=== PATIENT | male | born 1985 | race Caucasian/White ===

== ENCOUNTER 2016-09-29 19:56 | Emergency (ER) | payer BC, OTHER ==
[2016-09-29 21:05] LABS: Bilirubin,Urine NEG (Negative); Blood,Urine SM (Negative); Ketones,Urine NEG (Negative); Leukocyte Esterase,Urine NEG (Negative); Mucus,Urine FEW /HPF; Nitrite,Urine NEG (Negative); Protein,Urine <15 mg/dL mg/dL (Negative); Urobilinogen,Urine < 2.0 mg/dL (<2.0)
[2016-09-29 21:23] LABS: Basophils % (Auto) 0.8 % (0.0-1.8); Eosinophils % (Auto) 1.7 % (0.0-4.3); Hematocrit 50.4 % (35.5-45.6); Hemoglobin 16.8 gm/dl (11.8-15.2); Mean Corpuscular HGB Conc 33 % (32-34); Mean Corpuscular Hemoglobin 30 pg (28-32); Mean Corpuscular Volume 91 fl (84-94); Platelet Count 314 K/mm3 (140-440); Red Blood Count 5.53 M/mm3 (3.65-5.03); Red Cell Distribution Width 13.2 % (13.2-15.2); White Blood Count 9.3 K/mm3 (4.5-11.0)
[2016-09-29 21:32] LABS: BUN/Creatinine Ratio 17.39; Calcium 9.8 mg/dL (8.4-10.2)
[2016-09-29 21:49] LABS: Potassium 4.8 mmol/L (3.6-5.0)
[2016-09-30] MEDS ORDERED: NACL 0.9% 1000 ML 1,000 ML IV ONE (02:30)
--- NOTE | 2016-09-30 03:09 | Emergency Department Report ---
HPI - General Chief Complaint: Hyperglycemia Time Seen by Provider: 09/30/16 02:20 - HPI HPI: Room 5 The patient is a 31-year-old male presenting with a chief complaint of body cramping. The patient states she's had multiple episodes after working outside and son when he feels body cramping dizziness nausea and weakness. Patient states the first episode occurred 2 weeks ago while working out son. The patient states yesterday he had an episode and then again today prompting him to go to an urgent care facility. The patient states he was advised to come to the emergency department from the urgent care facility in order to have labs checked. The patient no longer complains of dizziness and nausea or weakness but states he has mild cramping in his extremities. Not ever having chest pain. Patient currently denies shortness of breath. Location: [see above] Duration: Intermittent over the past 2 weeks Quality: Cramping Severity: Moderate Modifying factors: [see above] Context: [see above] Mode of transportation: Unknown ED Past Medical Hx - Past Medical History Previous Medical History?: Yes Hx Hypertension: Yes Hx Diabetes: Yes - Surgical History Past Surgical History?: No - Family History Family history: no significant - Social History Smoking Status: Current Every Day Smoker (1/2 pack per day) Substance Use Type: None (denies illicit drug use), Alcohol (occasional) - Medications Home Medications: Home Medications Medication Instructions Recorded Confirmed Last Taken Type Amoxicillin/K Clav Tab [Augmentin 1 tab PO BID #12 tablet 06/17/14 Unknown Rx 875MG TAB] HYDROcodone/APAP 5-325 [[place] 1 each PO Q6HR PRN #14 tablet 06/17/14 Unknown Rx 5/325] Insulin Glargine [Lantus VIAL] 18 units SUB-Q QHS 30 Days 06/17/14 Unknown Rx Lisinopril [Zestril TAB] 5 mg PO QDAY #30 tablet 06/17/14 Unknown Rx Metformin HCl [Glucophage] 1,000 mg PO BID #60 tablet 06/17/14 Unknown Rx ED Review of Systems ROS: Stated complaint: DIZZINESS/NAUSEA/BODY CRAMPS Other details as noted in HPI Comment: All other systems reviewed and negative Constitutional: denies: chills, fever Eyes: denies: eye pain, eye discharge, vision change ENT: denies: ear pain, throat pain Respiratory: denies: cough, shortness of breath, wheezing Cardiovascular: denies: chest pain, palpitations Endocrine: no symptoms reported Gastrointestinal: nausea. denies: abdominal pain, vomiting, diarrhea Genitourinary: denies: urgency, dysuria Musculoskeletal: myalgia Skin: denies: rash, lesions Neurological: other (dizziness) Psychiatric: denies: anxiety, depression Hematological/Lymphatic: denies: easy bleeding, easy bruising Physical Exam - Physical Exam Vital Signs: Vital Signs 09/29/16 09/30/16 20:31 00:43 Temperature 98 F 97.5 F L Pulse Rate 98 H 95 H Respiratory 16 18 Rate Blood Pressure 135/89 137/79 O2 Sat by Pulse 99 97 Oximetry Physical Exam: GENERAL: The patient is well-developed well-nourished male lying on stretcher not appearing to be in acute distress. [] HEENT: Normocephalic. Atraumatic. Extraocular motions are intact. Patient has moist mucous membranes. NECK: Supple. Trachea midline CHEST/LUNGS: Clear to auscultation. There is no respiratory distress noted. HEART/CARDIOVASCULAR: Regular. There is no tachycardia. There is no gallop rub or murmur. ABDOMEN: Abdomen is soft, nontender. Patient has normal bowel sounds. There is no abdominal distention. SKIN: There is no rash. There is no edema. There is no diaphoresis. NEURO: The patient is awake, alert, and oriented. The patient is cooperative. The patient has no focal neurologic deficits. The patient has normal speech. Cranial nerves II through XII grossly intact, no drift MUSCULOSKELETAL: There is no evidence of acute injury. ED Course Vital Signs 09/29/16 09/30/16 20:31 00:43 Temperature 98 F 97.5 F L Pulse Rate 98 H 95 H Respiratory 16 18 Rate Blood Pressure 135/89 137/79 O2 Sat by Pulse 99 97 Oximetry ED Medical Decision Making - Lab Data Result diagrams: 09/29/16 20:59 09/29/16 20:59 Laboratory Tests 09/29/16 09/29/16 09/29/16 20:26 20:31 20:59 WBC 9.3 RBC 5.53 H Hgb 16.8 H Hct 50.4 H MCV 91 MCH 30 MCHC 33 RDW 13.2 Plt Count 314 Lymph % (Auto) 27.0 Grant % (Auto) 12.0 H Eos % (Auto) 1.7 Baso % (Auto) 0.8 Lymph # 2.5 Grant # 1.1 H Eos # 0.2 Baso # 0.1 Seg Neutrophils % 58.5 Seg Neutrophils # 5.4 VBG pH Sodium Potassium Chloride Carbon Dioxide Anion Gap BUN Creatinine Estimated GFR BUN/Creatinine Ratio Glucose POC Glucose 336 H Calcium Total Creatine Kinase Urine Color Yellow Urine Turbidity Clear Urine pH 5.0 Ur Specific [place] 1.011 Urine Protein <15 mg/dl Urine Glucose (UA) >=500 Urine Ketones Neg Urine Blood Sm Urine Nitrite Neg Urine Bilirubin Neg Urine Urobilinogen < 2.0 Ur Leukocyte Esterase Neg Urine WBC (Auto) 1.0 Urine RBC (Auto) 2.0 Urine Mucus Few 09/29/16 09/29/16 09/29/16 20:59 20:59 20:59 WBC RBC Hgb Hct MCV MCH MCHC RDW Plt Count Lymph % (Auto) [place] % (Auto) Eos % (Auto) Baso % (Auto) Lymph # Grant # Eos # Baso # Seg Neutrophils % Seg Neutrophils # VBG pH 7.331 Sodium 128 L Potassium 4.8 Chloride 88.0 L Carbon Dioxide 21 L Anion Gap 24 BUN 40 H Creatinine 2.3 H Estimated GFR 33 BUN/Creatinine Ratio 17.39 Glucose 331 H POC Glucose Calcium 9.8 Total Creatine Kinase 269 H Urine Color Urine Turbidity Urine pH Ur Specific [place] Urine Protein Urine Glucose (UA) Urine Ketones Urine Blood Urine Nitrite Urine Bilirubin Urine Urobilinogen Ur Leukocyte Esterase Urine WBC (Auto) Urine RBC (Auto) Urine Mucus 09/30/16 00:44 WBC RBC Hgb Hct MCV MCH MCHC RDW Plt Count Lymph % (Auto) [place] % (Auto) Eos % (Auto) Baso % (Auto) Lymph # [place] # Eos # Baso # Seg Neutrophils % Seg Neutrophils # VBG pH Sodium Potassium Chloride Carbon Dioxide Anion Gap BUN Creatinine Estimated GFR BUN/Creatinine Ratio Glucose POC Glucose 303 H Calcium Total Creatine Kinase Urine Color Urine Turbidity Urine pH Ur Specific [place] Urine Protein Urine Glucose (UA) Urine Ketones Urine Blood Urine Nitrite Urine Bilirubin Urine Urobilinogen Ur Leukocyte Esterase Urine WBC (Auto) Urine RBC (Auto) Urine Mucus - EKG Data -: EKG Interpreted by [place] EKG shows normal: sinus rhythm Rate: normal - EKG Data When compared to previous EKG there are: previous EKG unavailable Interpretation: nonspecific ST-T wave jordan (early repolarization. No ischemic changes seen) - Differential Diagnosis heatstroke, head injury, rhabdomyolysis, dehydration Critical care attestation.: If time is entered above; I have spent that time in minutes in the direct care of this critically ill patient, excluding procedure time. ED Disposition Clinical Impression: Dehydration, Heat cramps, Renal insufficiency Disposition: - TO HOME OR SELFCARE Is pt being admited?: No Does the pt Need Aspirin: No Condition: Stable Referrals: CHELY MOMIN [Other] - 3-5 Days JAMAL PEDERSEN MD [Staff Physician] - [facility] (Dr. Pedersen is a lpn per diem. Please follow up with him for further evaluation of your kidney function) Time of Disposition: 03:26
[2016-09-30 04:25] VITALS: BP 141/61
== END 2016-09-30 04:00 | disposition home or self-care (01) ==
LOC: ED 19:56
DX: E86.0 Dehydration (principal); M79.1 Myalgia; N28.9 Disorder of kidney and ureter, unspecified; I10 Essential (primary) hypertension; E11.9 Type 2 diabetes mellitus without complications; F17.200 Nicotine dependence, unspecified, uncomplicated
CPT/HCPCS: 36415; 80048; 81001; 82550; 82805; 82962; 85025; 93005; 93010; 96360; 99284; J7030